=== PATIENT | female | born 1955 | race Caucasian/White ===

== ENCOUNTER 2023-10-09 15:00 | Emergency (ER) | payer MEDICARE, OTHER, SELFPAY ==
[2023-10-09] VITALS (20 sets, daily range): BP systolic 105–153; BP diastolic 43–66; PULSE 64–105; TEMP 36.4; O2SAT 94–100; BMI 24.2
--- NOTE | 2023-10-09 15:11 | ECG_ITS ---
[facility] Test Date: 2023-10-09 Pat Name: AMINATA COVINGTON Department: Room: - Gender: Female Manager Commercial: : 1955 Requested By: Lise Coburn Order Number: [id number] Reading MD: GAYATRI SHETTY Measurements Intervals [place] Rate: 74 P: 62 TX: 170 QRS: -21 QRSD: 80 T: 52 QT: 408 QTc: 435 Interpretive Statements 1100 Sinus rhythm 2420 RSR (QR) in lead V1/V2, consistent with right ventricular conduction delay 8102 Low QRS voltage in chest leads 9150 abnormal ECG No previous ECG available for comparison Electronically Signed On 10-11-2023 14:16:46 EDT by GAYATRI SHETTY
--- NOTE | 2023-10-09 15:19 | CT_ITS ---
[address] [address] Patient Name: AMINATA COVINGTON MRN: [id number] date: 1955 Sex: F Assigned Patient Location: ER Current Patient Location: ER Accession/Order Number: [id number] Exam Date: 10/09/2023 16:08 Report Date: 10/09/2023 16:45 At the request of: NICOLE NEGRON Procedure: CT head/brain wo con CLINICAL HISTORY: dizziness. Vomiting. EXAMINATION: Unenhanced CT scan of the brain: 10/08/2022. COMPARISON: None. TECHNIQUE: 3 mm axial images from skull base through vertex without intravenous contrast were obtained. Sagittal, coronal reconstructions were performed. FINDINGS: The visualized intraorbital contents are normal. There are mildly prominent ventricles, sulcal, cisternal spaces. No discrete acute infarct is identified. There is no drop or extra-axial hemorrhage. There is no definite mass, mass effect or midline shift. The visualized paranasal sinuses, mastoid air cells appear normal. Calvarium appears intact. CT/CT head/brain wo con IMPRESSION: 1. No acute infarct, hemorrhage or acute intracranial process to explain patient's symptoms. 2. Mild atrophic changes. Electronically authenticated by: ALEKSANDRA ACUNA Date: 10/09/2023 16:45
[2023-10-09] MEDS: ONDANSETRON PF 4 MG/2 ML VIAL IV (15:26)
[2023-10-09] MEDS: 0.9 % SODIUM CHLORIDE 1,000 ML 1000 ML IV (15:26)
[2023-10-09 15:28] LABS: Basophils Percent Auto 0.5 % (0.2-2.0); Eosinophils Absolute Auto 0.1 10^3/uL (0.0-0.7); Eosinophils Percent Auto 0.9 % (0.9-7.0); Hematocrit 34.8 % (36.0-48.0); Hemoglobin 11.9 g/dL (12.0-16.0); Immature Granulocytes Abs Auto 0.03 10^3/uL (0.00-0.03); Immature Granulocytes Pct Auto 0.4 % (0.0-0.5); Lymphocytes Percent Auto 26.6 % (20.5-60.0); Mean Corpuscular HGB Conc 34.2 g/dL (29.9-35.2); Mean Corpuscular Hemoglobin 31.6 pg (26.7-34.0); Mean Corpuscular Volume 92.3 fL (81.0-99.0); Mean Platelet Volume 10.2 fL (9.5-13.5); Monocytes Absolute Auto 0.6 10^3/uL (0.3-0.8); Monocytes Percent Auto 8.4 % (1.7-12.0); Neutrophils Absolute Auto 4.7 10^3/uL (1.4-6.5); Neutrophils Percent Auto 63.2 % (43.0-75.0); Platelet Count 161 10^3/uL (150-450); Red Blood Count 3.77 10^6/uL (4.20-5.40); Red Cell Distribution Width 12.1 % (11.0-15.0); White Blood Count 7.4 10^3/uL (4.0-11.0)
[2023-10-09] MEDS: MECLIZINE HCL 12.5 MG TABLET 25 MG PO (15:44)
[2023-10-09 15:46] LABS: Alanine Aminotransferase 24 U/L (14-59); Albumin Globulin Ratio 1.1; Albumin Level 3.9 g/dL (3.4-5.0); Alkaline Phosphatase 44 U/L (46-116); Anion Gap 16.1; Aspartate Amino Transferase 18 U/L (15-37); BUN Creatinine Ratio 18.4; Bilirubin Total 0.8 mg/dL (0.2-1.0); Carbon Dioxide 23.9 mmol/L (21.0-32.0); Chloride 101 mmol/L (98-107); Estimated GFR (African America >60 (>=60); Estimated GFR (Non-African Ame >60 (>=60); Globulin 3.5 g/dL; Glucose 132 mg/dL (74-106); Magnesium 1.8 mg/dL (1.8-2.4); Sodium 138 mmol/L (136-145); Total Protein 7.4 g/dL (6.4-8.2); Troponin I High Sensitivity 6.6 pg/mL (4.0-51.3)
--- NOTE | 2023-10-09 16:09 | ED.DIZZY1 ---
HPI - Dizziness General Chief Complaint: Dizziness Stated Complaint: Syncope Time Seen by Provider: 10/09/23 15:02 Source: patient and family Mode of arrival: Wheelchair Limitations: no limitations History of Present Illness HPI Narrative: The patient presenting to us with a episode of dizziness, she mentioned that she was trying to drink water when she tilted her head backward and all of a sudden she started feeling the room spinning, the patient had no symptoms before this incident she mentioned that she asked the people around her when she was at work lowered her down to the floor, she did not pass out but she was feeling sick and dizzy since then, she did vomit 1 time, she did eat today and 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 Related Data Home Medications ?Medication ?Instructions ?Recorded ?Confirmed alendronate 70 mg tablet 70 mg PO .once weekly 10/09/23 10/09/23 atorvastatin 40 mg tablet 40 mg PO .once daily 10/09/23 10/09/23 Previous Rx's ?Medication ?Instructions ?Recorded meclizine 25 mg tablet 25 mg PO TID PRN motion sickness 10/09/23 #14 tabs ondansetron 4 mg disintegrating 4 mg PO Q8H PRN nausea and 10/09/23 tablet vomiting 48 hours #6 tabs Allergies Allergy/AdvReac Type Severity Reaction Status Date / Time Sulfa (Sulfonamide Allergy Intermediate Hives Verified 10/09/23 15:10 Antibiotics) sulfamethoxazole Allergy Intermediate Hives Verified 10/09/23 15:10 [From Bactrim] trimethoprim [From Bactrim] Allergy Intermediate Hives Verified 10/09/23 15:10 Review of Systems ROS Status of ROS 10 or more systems reviewed and unremarkable except as noted in history and below Exam Narrative Exam Narrative: Nurses notes and vital signs reviewed and patient is not hypoxic. General: Well-appearing and in no apparent distress. Skin: Warm, dry, no pallor noted. No rash. Head: Normocephalic, atraumatic. Neck: Supple, non-tender. Eye: Pupils are equal, round and EOMI. No scleral icterus. Ears, Nose, Mouth, and Throat: TM are clear, no nasal mucosal hypertrophy. Oral mucosa is moist, no posterior oropharynx erythema, uvula is mid-line Cardiovascular: Regular Rate and Rhythm without murmur, gallop or rub. Respiratory: No accessory muscle use or respiratory distress. Lungs are clear to auscultation, no wheezing, rales or rhonchi Chest Wall: no tenderness Back: No midline thoracic or lumbar vertebral tenderness. No CVA tenderness Musculoskeletal: normal ROM, no calf or popliteal tenderness, no lower extremity edema/swelling GI: Abdomen is soft, non-distended. Normal bowel sounds. No masses appreciated. No tenderness to palpation. No rebound, guarding, or rigidity noted. Neurological: A&O x4. No cranial nerve dysfunction observed. No truncal ataxia. Moves all extremities. Sensation intact. Psychiatric: Cooperative and interactive. Normal mood and affect. Constitutional Vital Signs, click to edit/add: Last Vital Signs Temp 97.6 F 10/09/23 15:05 Pulse 64 10/09/23 17:50 Resp 14 10/09/23 17:50 BP 134/60 10/09/23 17:30 Pulse Ox 99 10/09/23 17:50 O2 Del Method Room Air 10/09/23 15:05 Course Vital Signs Vital signs: Vital Signs Temperature 97.6 F 10/09/23 15:05 Pulse Rate 76 10/09/23 15:05 Respiratory Rate 18 10/09/23 15:05 Blood Pressure 138/49 10/09/23 15:05 Pulse Oximetry 97 10/09/23 15:05 Oxygen Delivery Method Room Air 10/09/23 15:05 Temperature 97.6 F 10/09/23 15:05 Pulse Rate 64 10/09/23 17:50 Respiratory Rate 14 10/09/23 17:50 Blood Pressure 134/60 10/09/23 17:30 Pulse Oximetry 99 10/09/23 17:50 Oxygen Delivery Method Room Air 10/09/23 15:05 MDM - Dizziness MDM Narrative Medical decision making narrative: The patient EKG upon presentation showing sinus rhythm with a heart rate of [address] elevation or depression The patient presentation is mostly secondary to vertigo she was treated with IV fluids as well as meclizine and Zofran when she arrived to us The CBC showed no acute significant pathology and the chemistry showing some hypokalemia with potassium of 3 that will be corrected with p.o. potassium CT head obtained showed no acute pathology Repeated troponin was still negative although it went from 6-12 and I did discuss the case with Dr. Gilberto in cardiology service and he thinks that still this is negative results especially with the patient typical presentation of vertigo The patient is to follow up with primary care physician in next 2-3 days or to return to the emergency department should any of the signs or symptoms worsen or new symptoms develop. The patient agrees with the following Diagnosis and Treatment plan and the patient will be discharged home. Lab Data Labs: Lab Results 10/09/23 10/09/23 Range/Units 15:20 17:03 WBC 7.4 (4.0-11.0) 10^3/uL RBC 3.77 L (4.20-5.40) 10^6/uL Hgb 11.9 L (12.0-16.0) g/dL Hct 34.8 L (36.0-48.0) % MCV 92.3 (81.0-99.0) fL MCH 31.6 (26.7-34.0) pg MCHC 34.2 (29.9-35.2) g/dL RDW 12.1 (11.0-15.0) % Plt Count 161 (150-450) 10^3/uL MPV 10.2 (9.5-13.5) fL Neut % (Auto) 63.2 (43.0-75.0) % Lymph % (Auto) 26.6 (20.5-60.0) % [place] % (Auto) 8.4 (1.7-12.0) % Eos % (Auto) 0.9 (0.9-7.0) % Baso % (Auto) 0.5 (0.2-2.0) % Neut # (Auto) 4.7 (1.4-6.5) 10^3/uL Lymph # (Auto) 2.0 (1.2-3.8) 10^3/uL [place] # (Auto) 0.6 (0.3-0.8) 10^3/uL Eos # (Auto) 0.1 (0.0-0.7) 10^3/uL Baso # (Auto) 0.0 (0.0-0.1) 10^3/uL Abs Immat Gran (auto) 0.03 (0.00-0.03) 10^3/uL Imm/Tot Granulo (auto) 0.4 (0.0-0.5) % Sodium 138 (136-145) mmol/L Potassium 3.0 L (3.5-5.1) mmol/L Chloride 101 (98-107) mmol/L Carbon Dioxide 23.9 (21.0-32.0) mmol/L Anion Gap 16.1 BUN 16.0 (7.0-18.0) mg/dL Creatinine 0.87 (0.55-1.02) mg/dL Est GFR ( Amer) >60 (>=60) Est GFR (Non-Af Amer) >60 (>=60) BUN/Creatinine Ratio 18.4 Glucose 132 H (74-106) mg/dL Calcium 10.0 (8.5-10.1) mg/dL Magnesium 1.8 (1.8-2.4) mg/dL Total Bilirubin 0.8 (0.2-1.0) mg/dL AST 18 (15-37) U/L ALT 24 (14-59) U/L Alkaline Phosphatase 44 L (46-116) U/L Troponin I High Sens 6.6 12.1 (4.0-51.3) pg/mL Total Protein 7.4 (6.4-8.2) g/dL Albumin 3.9 (3.4-5.0) g/dL Globulin 3.5 g/dL Albumin/Globulin Ratio 1.1 Discharge Plan Discharge Stand Alone Forms: Portal Instructions Chief Complaint: Dizziness Clinical Impression: Vertigo, Chronic hypokalemia Patient Disposition: Home, Self-Care Time of Disposition Decision: 17:48 Condition: Good Prescriptions / Home Meds: New ondansetron 4 mg tablet,disintegrating 4 mg PO Q8H PRN (Reason: nausea and vomiting) 2 Days Qty: 6 0RF meclizine 25 mg tablet 25 mg PO TID PRN (Reason: motion sickness) Qty: 14 0RF No Action atorvastatin 40 mg tablet 40 mg PO .once daily alendronate 70 mg tablet 70 mg PO .once weekly Print Language: Spanish Instructions: Vertigo (DC), Hypokalemia (ED) Referrals: CHE WEI [Primary Care Provider] - 1 week Discharge Date/Time: 10/09/23 18:09
[2023-10-09] MEDS: POTASSIUM BICARBONATE/CIT 25 MEQ TABLET EFF PO (17:19)
[2023-10-09 17:27] LABS: Troponin I High Sensitivity 12.1 pg/mL (4.0-51.3)
== END 2023-10-09 18:09 | disposition home or self-care (01) ==
PROVIDERS: Emergency Provider Emergency Medicine; PCP Nurse Practitioner
DX: R42 Dizziness and giddiness (principal); E87.6 Hypokalemia; Z79.899 Other long term (current) drug therapy
CPT/HCPCS: 36415; 70450; 80053; 83735; 84484; 85025; 93005; 96361; 96374; 99285